=== PATIENT | male | born 1945 | race Caucasian/White ===

== ENCOUNTER 2017-07-28 05:50 | Day surgery (SDC) | payer OTHER ==
[2017-07-27 14:04] VITALS: BMI 26.9
[2017-07-28] MEDS ORDERED: PROPOFOL 20 ML ONE ×2 (09:32)
[2017-07-28 10:35] VITALS: TEMP 97.7
[2017-07-28 12:06] VITALS: BP 131/50; PULSE 59
--- NOTE | 2017-07-31 15:37 | PATH ---
Surgical Pathology Report Patient Name: SANDEEP MCCOY [facility]. Rec. #: [id number] /Age/Gender: 1945 (Age: 71) / M Account: [id number] Location: [facility]ENDOSCOPY Taken: 07/28/2017 Received: 07/28/2017 Reported: 07/31/2017 Physicians: Livier Clark M.D. Specimen(s) Received A: BX 2ND PORTION DUODENUM & BULB B: BX ANTRUM C: BX POLYPS SIGMOID COLON Clinical History Preoperative diagnosis: Dyspepsia, weight loss Postoperative diagnosis: Atrophic gastritis, sigmoid polyps Final Diagnosis A. DUODENUM, SECOND PORTION AND BULB, BIOPSY: DUODENAL MUCOSA WITHOUT SIGNIFICANT PATHOLOGIC FINDINGS. B. STOMACH, ANTRUM, BIOPSY: GASTRIC ANTRAL MUCOSA WITH SEVERE CHRONIC ACTIVE GASTRITIS. IMMUNOHISTOCHEMICAL STAIN FOR H. PYLORI IS POSITIVE (MANY). C. SIGMOID COLON, POLYPS, BIOPSY: TUBULAR ADENOMA. HYPERPLASTIC POLYP. SEPARATE FRAGMENTS OF BENIGN COLONIC MUCOSA WITHOUT SIGNIFICANT PATHOLOGIC FINDINGS. Electronically Signed Alexandria Vázquez M.D. Gross Description A. Received in formalin, labeled "biopsy second portion of duodenum and bulb" are 3 erickson, irregular portions of soft tissue ranging from 0.4-0.5 cm. in greatest dimension. The specimens are submitted in toto in one cassette. B. Received in formalin, labeled "biopsy antrum" are 4 erickson, irregular portions of soft tissue ranging from 0.2-0.3 cm. in greatest dimension. The specimens are submitted in toto in one cassette. C. Received in formalin, labeled "biopsy polyps sigmoid colon" are 7 erickson, irregular portions of soft tissue ranging from 0.1-0.4 cm. in greatest dimension. The specimens are submitted in toto in one cassette. 07/28/201707/28/2017
== END 2017-07-28 11:45 | disposition home or self-care (01) ==
LOC: JASU-ENDO 05:50
PROVIDERS: ATTEND Internal Medicine Gastroenterology
PROC: 0DB78ZX Excision of Stomach, Pylorus, Via Natural or Artificial Opening Endoscopic, Diagnostic (ICD-10-PCS; 2017-07-28)
PROC: 0DBN8ZX Excision of Sigmoid Colon, Via Natural or Artificial Opening Endoscopic, Diagnostic (ICD-10-PCS; 2017-07-28)
PROC: 0DB98ZX Excision of Duodenum, Via Natural or Artificial Opening Endoscopic, Diagnostic (ICD-10-PCS; principal; 2017-07-28 10:00)
DX: K29.40 Chronic atrophic gastritis without bleeding (principal); K63.5 Polyp of colon; N40.0 Benign prostatic hyperplasia without lower urinary tract symptoms
CPT/HCPCS: 88305-TC; 88342-TC

== ENCOUNTER 2018-12-21 11:44 | Day surgery (SDC) | payer OTHER ==
[2018-12-20 10:19] VITALS: BMI 22.7
[2018-12-21] MEDS ORDERED: PROPOFOL 20 ML ONE (14:55)
[2018-12-21] MEDS ORDERED: ceFAZolin SODIUM 1 GM VIAL ONE (15:11)
[2018-12-21] MEDS ORDERED: ceFAZolin SODIUM 1 GM VIAL IVPB ONE (15:12)
[2018-12-21] MEDS ORDERED: DEXAMETHASONE SOD PHOSPHATE 4 MG/1 ML VIAL ONE (15:13)
--- NOTE | 2018-12-21 15:37 | OP ---
Operative Note - Note: Operative Date: 12/21/18 Pre-Operative Diagnosis: bph with luts Operation: turp/tuvp Findings: trilobar hypertrophy with bladder trabeculation Post-Operative Diagnosis: Same as Pre-op Surgeon: Ana Chance Anesthesia: General Specimens Removed: prostate chips Estimated Blood Loss (mls): 10 Drains, Volume Out (mls): 0 Blood Volume Replaced (mls): 0 Fluid Volume Replaced (mls): 0 Operative Report Dictated: Yes
--- NOTE | 2018-12-21 15:40 | HP ---
DATE OF ADMISSION: 12/21/2018 HISTORY OF PRESENT ILLNESS: Patient is a 73-year-old male with history of benign prostatic hypertrophy with lower urinary tract symptoms. He has been treated with Flomax without help. He does complaint of frequency, hesitancy, nocturia x4, and feelings of incomplete bladder emptying. The patient also has history of diabetes, high blood pressure, coronary artery disease, and dyslipidemia. 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 MEDICATIONS: Presently, the patient is on Flomax, Vesicare, metoprolol, metformin, a statin, and a glyburide. PHYSICAL EXAMINATION: Chest: Clear. Abdomen: Soft. No CVA tenderness. No hepatosplenomegaly. Genitalia: Atraumatic. Testes are normal in size and consistency. Phallus is normal. Meatus is adequate. Prostate is 3+, smooth, benign, nontender. Rectal tone is good. Saddle sensation is present. Bulbocavernosus reflex is brisk. Extremities: Reveal full range of motion with no cyanosis, clubbing, or edema. LABORATORY DATA: His serum PSA is 0.3. BUN 16, creatinine 1.03. IMPRESSION: At present is benign prostatic hypertrophy with lower urinary tract symptoms. Failed medical management. PLAN: Is to undergo a prostate resection. Patient was explained the procedure and all side effects including retrograde ejaculation, and he agrees. DENISE LUIS M.D. [id number]
[2018-12-21] MEDS ORDERED: ACETAMINOPHEN 325 MG TABLET (FP) PO PRN (15:48)
[2018-12-21] MEDS ORDERED: ONDANSETRON 4 MG/2 ML VIAL IVPUSH PRN (15:48)
[2018-12-21] MEDS ORDERED: LACTATED RINGERS SOLUTION 1,000 ML IV SCH (16:00)
[2018-12-21 17:06] VITALS: BP 151/72
[2018-12-21 18:17] VITALS: PULSE 60; TEMP 97.9
--- NOTE | 2018-12-22 08:13 | OP ---
DATE OF OPERATION: 12/21/2018 PREOPERATIVE DIAGNOSIS: Benign prostatic hypertrophy with lower urinary tract symptoms. POSTOPERATIVE DIAGNOSIS: Trabeculated bladder. OPERATIVE PROCEDURE: Cystourethroscopy, transurethral resection, and transurethral vaporization of the prostate. Under general anesthesia, patient was prepped and draped in the usual sterile manner. He was placed in the dorsal lithotomy position. Cystoscopy revealed trilobar hypertrophy of the prostate. There was lateral lobe kissing. There was a grade 2 trabeculation of the bladder. A resectoscope was inserted. Resection of the prostate was commenced at the 6 o'clock position of the right lateral lobe. This was carried on up to the 12 o'clock position. The same thing was done to the left lateral lobe. Lastly, the median lobe was resected. A Vaportrode was introduced, and excess tissue was vaporized. Prostate chips were evacuated with an MirDeneg evacuator. No active bleeding was noted. The bladder was emptied. The scope was removed. A 24-[place]izen [place], 30-mL Chahal was inserted. This was connected to a drainage bag. The patient tolerated the procedure well. Dev [id number]
--- NOTE | 2018-12-22 09:47 | OP ---
DATE OF OPERATION: 12/21/2018 SURGEON: Ana Chance MD PREOPERATIVE DIAGNOSIS: Obstructive uropathy, benign prostatic hypertrophy, trilobar hypertrophy of the prostate. POSTOPERATIVE DIAGNOSIS: Obstructive uropathy, benign prostatic hypertrophy, trilobar hypertrophy of the prostate. OPERATIVE PROCEDURE: Cystourethroscopy, transurethral vaporization of the prostate, and transurethral vaporization of the prostate. DESCRIPTION OF PROCEDURE: Under general anesthesia, patient was prepped and draped in the usual sterile manner. He was placed in the dorsal lithotomy position. Cystoscopy revealed trilobar hypertrophy of the prostate. There was lateral lobe kissing. There was grade 2 trabeculation of the bladder. No lesions or calculi were seen. Ureteral orifices were within normal limits with efflux of clear urine. A bipolar resectoscope was inserted and resection of the prostate was commenced in the usual fashion. Afterwards, a Vaportrode was introduced, and excess tissue was vaporized and hemostasis was secured. Prostate chips were evacuated with an Ellik evacuator. No active bleeding was noted. The bladder was emptied. The scope was removed. The 24-[place] 30-mL Chahal was inserted. This was connected to bladder irrigation. The patient tolerated the procedure. He returned to the recovery room in good condition. Dev [id number]
--- NOTE | 2018-12-25 15:41 | PATH ---
Surgical Pathology Report Patient Name: SANDEEP MCCOY [facility]. Rec. #: [id number] /Age/Gender: 1945 (Age: 73) / M Account: [id number] Location: [facility] SURGICAL Taken: 12/21/2018 Received: 12/24/2018 Reported: 12/25/2018 Physicians: Ana Chance M.D. Specimen(s) Received PROSTATE CHIPS Clinical History BPH Final Diagnosis PROSTATE CHIPS, TRANSURETHRAL RESECTION OF PROSTATE: BENIGN PROSTATIC TISSUE WITH FOCAL ACUTE AND CHRONIC INFLAMMATION, ACINAR ATROPHY, CYSTIC CHANGES, MILD GLANDULAR AND STROMAL HYPERPLASIA. Electronically Signed Alexandria Vázquez M.D. Gross Description Received in formalin labeled "prostate chips," is a 5.0 x 4.4 x 0.4 cm aggregate of erickson, irregular portions of firm to rubbery tissue, consistent with prostate chips. The specimen is entirely submitted in 3 cassettes. /12/24/2018 saudi12/24/2018
== END 2018-12-21 18:10 | disposition home or self-care (01) ==
LOC: JASU-SURG 11:44
PROVIDERS: ATTEND Urology
PROC: 0VT08ZZ Resection of Prostate, Via Natural or Artificial Opening Endoscopic (ICD-10-PCS; principal; 2018-12-21 13:00)
DX: N40.1 Benign prostatic hyperplasia with lower urinary tract symptoms (principal); N13.9 Obstructive and reflux uropathy, unspecified; N32.89 Other specified disorders of bladder; I10 Essential (primary) hypertension; E11.9 Type 2 diabetes mellitus without complications; Z79.84 Long term (current) use of oral hypoglycemic drugs
CPT/HCPCS: 82962; 87086; 88305-TC; 94760

== ENCOUNTER 2021-06-28 04:28 | Day surgery (SDC) | payer OTHER ==
[2021-06-25 11:57] VITALS: BMI 27.3
[2021-06-28 09:57] LABS: INR 1.17 (0.83-1.09); PROTHROMBIN TIME (PATIENT) 13.1 SEC (9.7-13.0)
[2021-06-28] MEDS ORDERED: PROPOFOL 20 ML ONE ×2 (11:37)
[2021-06-28] MEDS ORDERED: ceFAZolin SODIUM 1 GM VIAL IVPB ONE (11:50)
[2021-06-28] MEDS ORDERED: HYDROmorphone HCL CARPU-JECT 2 MG/1 ML DISP.SYRIN IM ONE (12:49)
[2021-06-28] MEDS ORDERED: TAMSULOSIN HCL 0.4 MG CAP PO ONE ×2 (12:49→15:08)
[2021-06-28] MEDS ORDERED: ACETAMINOPHEN 325 MG TABLET (FP) PO PRN ×2 (12:49)
[2021-06-28] MEDS ORDERED: METOPROLOL TARTRATE 50 MG TABLET (FP) PO ONE (12:57)
[2021-06-28] MEDS ORDERED: LACTATED RINGERS SOLUTION 1,000 ML/1,000 ML INFUS.BAG IV SCH (13:30)
[2021-06-28] MEDS ORDERED: oxyCODONE HCL 5 MG TABLET PO PRN (13:55)
[2021-06-28] MEDS: metFORMIN HCL 500 MG TABLET (FP) PO SCH (17:45)
[2021-06-28] MEDS ORDERED: DOCUSATE SODIUM 100 MG CAPSULE (FP) PO SCH (22:00)
[2021-06-29 05:05] VITALS: BP 118/64; PULSE 74; TEMP 98.3
[2021-06-29] MEDS ORDERED: PT OWN MED DRAWER 7, Y5N ONE ×3 (05:45→06:28)
[2021-06-29] MEDS: metFORMIN HCL 500 MG TABLET (FP) PO SCH (06:31)
[2021-06-29] MEDS ORDERED: GLIMEPIRIDE 4 MG TABLET PO SCH (07:00)
== END 2021-06-29 15:23 | disposition home or self-care (01) ==
LOC: JASUSAT 04:28 → JASU-SURG 04:28 → J6S 16:34 → JASUSAT 06-29 15:23
PROVIDERS: ATTEND Urology
PROC: 0VT08ZZ Resection of Prostate, Via Natural or Artificial Opening Endoscopic (ICD-10-PCS; principal; 2021-06-28 11:00)
DX: N40.1 Benign prostatic hyperplasia with lower urinary tract symptoms (principal); N32.89 Other specified disorders of bladder; E11.9 Type 2 diabetes mellitus without complications; I10 Essential (primary) hypertension; Z79.84 Long term (current) use of oral hypoglycemic drugs
CPT/HCPCS: 36415; 85610; 87086; 88305-TC; 94010; 94760

== ENCOUNTER 2021-08-17 13:30 | Inpatient (IN) | payer OTHER ==
[2021-08-17 14:01] VITALS: BMI 22.8
[2021-08-17 17:39] LABS: BASO % 0.9 % (0-2.0); EOS % 3.5 % (0-4.5); HEMATOCRIT 39.4 % (35.4-49); HEMOGLOBIN 13.1 GM/dL (11.7-16.9); LYMPH % 21.4 % (8-40); MCH 30.7 pg (25.7-33.7); MCHC 33.3 g/dl (32.0-35.9); MEAN CELL VOLUME 92.1 fl (80-96); MEAN PLT VOLUME 7.1 fl (7.5-11.1); MONO % 10.1 % (3.8-10.2); NEUT % 64.1 % (42.8-82.8); PLATELET COUNT 214 10^3/uL (134-434); RBC 4.27 M/mm3 (4.00-5.60); RDW 13.8 % (11.9-15.9); WHITE BLOOD COUNT 6.4 K/mm3 (4.0-10.0)
[2021-08-17 17:58] LABS: CHLORIDE 101 mmol/L (98-107); SODIUM 136 mmol/L (136-145)
[2021-08-17 18:00] LABS: CALCIUM 8.9 mg/dL (8.5-10.1)
[2021-08-17 18:01] LABS: ALBUMIN 3.8 g/dl (3.4-5.0); ANION GAP 6 MMOL/L (8-16); BLOOD UREA NITROGEN 28.1 mg/dL (7-18); CO2 28 mmol/L (21-32); GLUCOSE,RANDOM 186 mg/dL (74-106); MAGNESIUM 2.2 mg/dL (1.8-2.4)
[2021-08-17 18:04] LABS: CHOLESTEROL 213 mg/dL (50-200); CREATININE 1.4 mg/dL (0.55-1.3); PHOSPHOROUS 2.7 mg/dL (2.5-4.9); SGOT/AST 18 U/L (15-37); SGPT/ALT 24 U/L (13-61); TRIGLYCERIDES 200 mg/dL (0-150)
[2021-08-17 18:05] LABS: BILIRUBIN,TOTAL 0.4 mg/dL (0.2-1); LDL CHOLESTEROL (ONLY SJRH) 127 mg/dL (5-100); TOT PROT 7.5 g/dl (6.4-8.2)
[2021-08-17 18:06] LABS: ALK PHOS 72 U/L (45-117); HDL CHOLESTEROL 43 mg/dL (40-60)
[2021-08-17] MEDS ORDERED: SODIUM CHLORIDE 0.9% 500 ML INFUS.BAG IV ONE (18:32)
[2021-08-17] MEDS ORDERED: ATORVASTATIN CA 80 MG TABLET (FP) PO ONE (21:23)
[2021-08-17] MEDS ORDERED: ASPIRIN 81 MG CHEWABLE TABLETS PO ONE (21:23)
[2021-08-17] MEDS ORDERED: ATORVASTATIN CA 80 MG TABLET (FP) ONE (21:37)
[2021-08-17] MEDS ORDERED: ASPIRIN 81 MG CHEWABLE TABLETS ONE (21:37)
[2021-08-17 23:37] LABS: INR 1.06 (0.83-1.09); PROTHROMBIN TIME (PATIENT) 12.4 SEC (9.7-13.0)
[2021-08-17 23:40] LABS: ACTIVATED PTT 30.4 SECONDS (25.2-36.5)
[2021-08-18] MEDS ORDERED: ASPIRIN 81 MG CHEWABLE TABLETS PO ONE (01:22)
[2021-08-18] MEDS ORDERED: MELATONIN 5 MG TABLETS PO ONE (02:31)
[2021-08-18] MEDS ORDERED: LORazepam 2 MG/ML SDV VIAL IVPUSH ONE (03:40)
[2021-08-18] MEDS ORDERED: LORazepam 2 MG/ML SDV VIAL ONE (03:41)
[2021-08-18 05:51] LABS: EPI CELLS 33 /uL (0-25.1); HYALINE CASTS 1 /uL (0-3.1); URINE APPEARANCE TURBID; URINE BACTERIA 1360 /uL (0-1359); URINE BILIRUBIN NEGATIVE (NEGATIVE); URINE COLOR YELLOW; URINE GLUCOSE (UA) 3+ (NEGATIVE); URINE KETONE TRACE (NEGATIVE); URINE LEUK ESTERASE 3+ (NEGATIVE); URINE NITRITE NEGATIVE (NEGATIVE); URINE PROTEIN 1+ (NEGATIVE); URINE RBC 238 /uL (0-23.9); URINE UROBILINOGEN 0.2 mg/dL (0.2-1.0); URINE WBC 12722 /uL (0-25.8)
[2021-08-18 06:48] LABS: YEAST NONE SEEN (NEGATIVE)
[2021-08-18 08:12] LABS: BASO % 0.7 % (0-2.0); EOS % 4.4 % (0-4.5); HEMATOCRIT 38.5 % (35.4-49); HEMOGLOBIN 13.2 GM/dL (11.7-16.9); MCH 31.4 pg (25.7-33.7); MCHC 34.4 g/dl (32.0-35.9); MEAN CELL VOLUME 91.3 fl (80-96); MONO % 10.4 % (3.8-10.2); NEUT % 65.5 % (42.8-82.8); PLATELET COUNT 191 10^3/uL (134-434); RBC 4.22 M/mm3 (4.00-5.60); RDW 13.6 % (11.9-15.9); WHITE BLOOD COUNT 5.7 K/mm3 (4.0-10.0)
[2021-08-18 08:14] LABS: INR 1.06 (0.83-1.09); PROTHROMBIN TIME (PATIENT) 11.9 SEC (9.7-13.0)
[2021-08-18 08:17] LABS: ACTIVATED PTT 30.3 SECONDS (25.2-36.5)
[2021-08-18 08:30] LABS: ALBUMIN 3.4 g/dl (3.4-5.0); BLOOD UREA NITROGEN 19.2 mg/dL (7-18); CALCIUM 8.7 mg/dL (8.5-10.1); MAGNESIUM 1.9 mg/dL (1.8-2.4)
[2021-08-18 08:33] LABS: PHOSPHOROUS 3.1 mg/dL (2.5-4.9)
[2021-08-18 08:34] LABS: BILIRUBIN,TOTAL 0.7 mg/dL (0.2-1); TOT PROT 6.8 g/dl (6.4-8.2)
[2021-08-18] MEDS ORDERED: HEPARIN NA (PORCINE) 5,000 UNITS/ML 1ML VIAL IVPUSH PRN (09:27)
[2021-08-18] MEDS ORDERED: ENOXAPARIN NA (PORCINE) 40 MG/0.4 ML DISP.SYRIN SQ SCH (10:00)
[2021-08-18] MEDS ORDERED: ASPIRIN 81 MG CHEWABLE TABLETS ONE (12:56)
[2021-08-18] MEDS: ASPIRIN 81 MG CHEWABLE TABLETS PO SCH (12:59)
[2021-08-18] MEDS ORDERED: HEPARIN INFUSION - 25,000 UNITS/500 ML INFUS.BAG IVPB ONE (13:07)
[2021-08-18] MEDS ORDERED: DONEPEZIL HCL 5 MG TABLET (FP) ONE (13:07)
[2021-08-18] MEDS: DONEPEZIL HCL 10 MG TABLET (FP) PO SCH (13:28)
[2021-08-18] MEDS ORDERED: CEFTRIAXONE 1 GM in DEXTROSE 5%-WATER - 50 ML IVPB ONE (16:15)
[2021-08-18] MEDS ORDERED: CEFTRIAXONE 1 GM/50 ML BAG ONE (16:20)
[2021-08-18] MEDS: HEPARIN - 25,000 UNIT in SODIUM CHLORIDE 495 ML IV SCH (16:45)
[2021-08-18] MEDS: INSULIN SLIDING SCALE (NOVOLOG) 1 VIAL SQ SCH ×3 (17:25→22:07)
[2021-08-18] MEDS: ATORVASTATIN CA 80 MG TABLET (FP) PO SCH (22:07)
[2021-08-19] MEDS: INSULIN SLIDING SCALE (NOVOLOG) 1 VIAL SQ SCH ×4 (06:18→21:46)
[2021-08-19 08:28] LABS: HEMOGLOBIN 13.1 GM/dL (11.7-16.9); MCH 31.2 pg (25.7-33.7); MCHC 34.5 g/dl (32.0-35.9); MEAN CELL VOLUME 90.3 fl (80-96); MEAN PLT VOLUME 7.3 fl (7.5-11.1); PLATELET COUNT 228 10^3/uL (134-434); RDW 13.3 % (11.9-15.9); WHITE BLOOD COUNT 6.7 K/mm3 (4.0-10.0)
[2021-08-19 08:33] LABS: INR 1.08 (0.83-1.09); PROTHROMBIN TIME (PATIENT) 12.6 SEC (9.7-13.0)
[2021-08-19 08:36] LABS: ACTIVATED PTT 104.9 SECONDS (25.2-36.5)
[2021-08-19] MEDS: ASPIRIN 81 MG CHEWABLE TABLETS PO SCH (09:44)
[2021-08-19] MEDS: DONEPEZIL HCL 10 MG TABLET (FP) PO SCH (09:45)
[2021-08-19] MEDS: TAMSULOSIN HCL 0.4 MG CAP PO SCH (09:45)
[2021-08-19] MEDS: HEPARIN - 25,000 UNIT in SODIUM CHLORIDE 495 ML IV SCH ×2 (09:47→16:54)
[2021-08-19 14:34] LABS: BLOOD UREA NITROGEN 19.5 mg/dL (7-18); CALCIUM 8.9 mg/dL (8.5-10.1)
[2021-08-19] MEDS: HEPARIN NA (PORCINE) 5,000 UNITS/ML 1ML VIAL IVPUSH PRN (16:53)
[2021-08-19] MEDS: metoPROLOL SUCCINATE 25 MG TAB.SR.24H (FP) PO SCH (18:10)
[2021-08-19] MEDS: WARFARIN NA 2 MG TABLET PO SCH (18:10)
[2021-08-19] MEDS: AMPICILLIN - 1 GM in SODIUM CHLORIDE 100 ML IVPB SCH (18:11)
[2021-08-19] MEDS: ATORVASTATIN CA 80 MG TABLET (FP) PO SCH (21:42)
[2021-08-20] MEDS: AMPICILLIN - 1 GM in SODIUM CHLORIDE 100 ML IVPB SCH ×4 (00:11→17:27)
[2021-08-20] MEDS: INSULIN SLIDING SCALE (NOVOLOG) 1 VIAL SQ SCH ×4 (07:01→21:29)
[2021-08-20 07:44] LABS: HEMATOCRIT 39.4 % (35.4-49); HEMOGLOBIN 13.4 GM/dL (11.7-16.9); MCH 31.2 pg (25.7-33.7); MCHC 34.2 g/dl (32.0-35.9); MEAN CELL VOLUME 91.4 fl (80-96); MEAN PLT VOLUME 7.6 fl (7.5-11.1); PLATELET COUNT 226 10^3/uL (134-434); RBC 4.31 M/mm3 (4.00-5.60); RDW 13.5 % (11.9-15.9); WHITE BLOOD COUNT 6.4 K/mm3 (4.0-10.0)
[2021-08-20 07:55] LABS: INR 1.07 (0.83-1.09); PROTHROMBIN TIME (PATIENT) 12.5 SEC (9.7-13.0)
[2021-08-20 07:57] LABS: ACTIVATED PTT 66.3 SECONDS (25.2-36.5)
[2021-08-20 08:01] LABS: ALBUMIN 3.3 g/dl (3.4-5.0); BLOOD UREA NITROGEN 22.6 mg/dL (7-18); CALCIUM 8.7 mg/dL (8.5-10.1)
[2021-08-20 08:03] LABS: CREATININE 1.2 mg/dL (0.55-1.3)
[2021-08-20 08:04] LABS: BILIRUBIN,TOTAL 0.6 mg/dL (0.2-1)
[2021-08-20] MEDS: metoPROLOL SUCCINATE 25 MG TAB.SR.24H (FP) PO SCH (09:22)
[2021-08-20] MEDS: TAMSULOSIN HCL 0.4 MG CAP PO SCH (09:22)
[2021-08-20] MEDS: ASPIRIN 81 MG CHEWABLE TABLETS PO SCH (09:22)
[2021-08-20] MEDS: DONEPEZIL HCL 10 MG TABLET (FP) PO SCH (09:22)
[2021-08-20] MEDS: HEPARIN - 25,000 UNIT in SODIUM CHLORIDE 495 ML IV SCH (11:58)
[2021-08-20] MEDS: WARFARIN NA 2 MG TABLET PO SCH (17:27)
[2021-08-20] MEDS ORDERED: PT OWN MED DRAWER 7, Y5N ONE (18:01)
[2021-08-20] MEDS: ATORVASTATIN CA 80 MG TABLET (FP) PO SCH (21:29)
[2021-08-21] MEDS ORDERED: PT OWN MED DRAWER 7, Y5N ONE (00:27)
[2021-08-21] MEDS: AMPICILLIN - 1 GM in SODIUM CHLORIDE 100 ML IVPB SCH ×3 (00:39→13:43)
[2021-08-21] MEDS ORDERED: LORazepam 2 MG/ML SDV VIAL IVPUSH ONE (03:28)
[2021-08-21] MEDS ORDERED: LORazepam 2 MG/ML SDV VIAL IVPUSH PRN (03:30)
[2021-08-21] MEDS: INSULIN SLIDING SCALE (NOVOLOG) 1 VIAL SQ SCH ×4 (06:43→21:59)
[2021-08-21 08:30] LABS: HEMOGLOBIN 13.1 GM/dL (11.7-16.9); MCH 30.1 pg (25.7-33.7); MCHC 32.7 g/dl (32.0-35.9); PLATELET COUNT 270 10^3/uL (134-434); RBC 4.35 M/mm3 (4.00-5.60); RDW 13.7 % (11.9-15.9); WHITE BLOOD COUNT 10.4 K/mm3 (4.0-10.0)
[2021-08-21 08:47] LABS: INR 1.17 (0.83-1.09); PROTHROMBIN TIME (PATIENT) 13.7 SEC (9.7-13.0)
[2021-08-21 08:56] LABS: ALBUMIN 3.5 g/dl (3.4-5.0); BLOOD UREA NITROGEN 18.9 mg/dL (7-18)
[2021-08-21 08:59] LABS: CREATININE 1.2 mg/dL (0.55-1.3)
[2021-08-21 09:01] LABS: BILIRUBIN,TOTAL 0.6 mg/dL (0.2-1); TOT PROT 7.1 g/dl (6.4-8.2)
[2021-08-21] MEDS: TAMSULOSIN HCL 0.4 MG CAP PO SCH (09:24)
[2021-08-21] MEDS: DONEPEZIL HCL 10 MG TABLET (FP) PO SCH (09:24)
[2021-08-21] MEDS: ASPIRIN 81 MG CHEWABLE TABLETS PO SCH (09:24)
[2021-08-21] MEDS: metoPROLOL SUCCINATE 25 MG TAB.SR.24H (FP) PO SCH (09:25)
[2021-08-21] MEDS: INSULIN (LEVEMIR) 100 UNITS/ML UNITS SQ SCH ×2 (09:25→21:59)
[2021-08-21] MEDS: HEPARIN NA (PORCINE) 5,000 UNITS/ML 1ML VIAL IVPUSH PRN ×2 (09:51→17:44)
[2021-08-21] MEDS: HEPARIN - 25,000 UNIT in SODIUM CHLORIDE 495 ML IV SCH ×2 (11:16→17:43)
[2021-08-21] MEDS: Insulin (LOG) Aspart 100 UNITS/ML VIAL SQ SCH ×2 (11:22→16:57)
[2021-08-21] MEDS ORDERED: metoPROLOL SUCCINATE 25 MG TAB.SR.24H (FP) PO ONE (14:37)
[2021-08-21] MEDS ORDERED: cefTRIAXone SODIUM 1 GM VIAL ONE (16:46)
[2021-08-21] MEDS ORDERED: DEXTROSE 5%-WATER - 50 ML IVPB ONE (16:46)
[2021-08-21] MEDS: CEFTRIAXONE 1 GM in DEXTROSE 5%-WATER - 50 ML IVPB SCH (16:48)
[2021-08-21] MEDS: VANCOMYCIN 1 GRAM (PRE-DOCKED) 1,000 MG/250 ML BAG IVPB SCH (18:15)
[2021-08-21] MEDS: WARFARIN NA 2 MG TABLET PO SCH (18:15)
[2021-08-21] MEDS: ATORVASTATIN CA 80 MG TABLET (FP) PO SCH (21:59)
[2021-08-21] MEDS: QUEtiapine FUMARATE 25 MG TABLET PO SCH (22:00)
[2021-08-22] MEDS: INSULIN SLIDING SCALE (NOVOLOG) 1 VIAL SQ SCH ×4 (06:07→21:44)
[2021-08-22] MEDS: INSULIN (LEVEMIR) 100 UNITS/ML UNITS SQ SCH ×2 (06:21→21:43)
[2021-08-22] MEDS: Insulin (LOG) Aspart 100 UNITS/ML VIAL SQ SCH ×3 (06:22→17:22)
[2021-08-22 08:10] LABS: ACTIVATED PTT 99.1 SECONDS (25.2-36.5)
[2021-08-22 08:11] LABS: HEMATOCRIT 37.1 % (35.4-49); HEMOGLOBIN 12.2 GM/dL (11.7-16.9); MCH 30.2 pg (25.7-33.7); MCHC 32.9 g/dl (32.0-35.9); MEAN CELL VOLUME 91.8 fl (80-96); MEAN PLT VOLUME 7.5 fl (7.5-11.1); PLATELET COUNT 288 10^3/uL (134-434); RBC 4.04 M/mm3 (4.00-5.60); RDW 13.8 % (11.9-15.9)
[2021-08-22 08:25] LABS: INR 1.41 (0.83-1.09); PROTHROMBIN TIME (PATIENT) 15.9 SEC (9.7-13.0)
[2021-08-22] MEDS: HEPARIN - 25,000 UNIT in SODIUM CHLORIDE 495 ML IV SCH ×2 (09:13→18:36)
[2021-08-22] MEDS ORDERED: cefTRIAXone SODIUM 1 GM VIAL ONE (10:16)
[2021-08-22] MEDS ORDERED: DEXTROSE 5%-WATER - 50 ML IVPB ONE (10:17)
[2021-08-22] MEDS: ACETAMINOPHEN 325 MG TABLET (FP) PO PRN (10:27)
[2021-08-22] MEDS: ASPIRIN 81 MG CHEWABLE TABLETS PO SCH (10:28)
[2021-08-22] MEDS: TAMSULOSIN HCL 0.4 MG CAP PO SCH (10:28)
[2021-08-22] MEDS: DONEPEZIL HCL 10 MG TABLET (FP) PO SCH (10:28)
[2021-08-22] MEDS: LISINOPRIL 5 MG TABLET PO SCH (10:28)
[2021-08-22] MEDS: metoPROLOL SUCCINATE 25 MG TAB.SR.24H (FP) PO SCH (10:28)
[2021-08-22] MEDS: CEFTRIAXONE 1 GM in DEXTROSE 5%-WATER - 50 ML IVPB SCH (10:28)
[2021-08-22 11:08] LABS: BLOOD UREA NITROGEN 12.9 mg/dL (7-18); CALCIUM 8.9 mg/dL (8.5-10.1)
[2021-08-22 11:16] LABS: BILIRUBIN,TOTAL 0.5 mg/dL (0.2-1); TOT PROT 6.5 g/dl (6.4-8.2)
[2021-08-22] MEDS: VANCOMYCIN 1 GRAM (PRE-DOCKED) 1,000 MG/250 ML BAG IVPB SCH (17:19)
[2021-08-22] MEDS: WARFARIN NA 2 MG TABLET PO SCH (17:19)
[2021-08-22] MEDS: ATORVASTATIN CA 80 MG TABLET (FP) PO SCH (21:43)
[2021-08-22] MEDS: QUEtiapine FUMARATE 25 MG TABLET PO SCH (21:43)
[2021-08-23] MEDS: Insulin (LOG) Aspart 100 UNITS/ML VIAL SQ SCH ×2 (06:37→11:57)
[2021-08-23] MEDS: INSULIN (LEVEMIR) 100 UNITS/ML UNITS SQ SCH ×2 (06:37→21:34)
[2021-08-23] MEDS: INSULIN SLIDING SCALE (NOVOLOG) 1 VIAL SQ SCH ×4 (06:37→21:32)
[2021-08-23] MEDS: ACETAMINOPHEN 325 MG TABLET (FP) PO PRN ×2 (06:43→09:57)
[2021-08-23] MEDS ORDERED: cefTRIAXone SODIUM 1 GM VIAL ONE (08:11)
[2021-08-23] MEDS ORDERED: DEXTROSE 5%-WATER - 50 ML IVPB ONE ×2 (08:12→18:10)
[2021-08-23] MEDS ORDERED: PT OWN MED DRAWER 7, Y5N ONE (08:18)
[2021-08-23 08:24] LABS: HEMATOCRIT 38.1 % (35.4-49); HEMOGLOBIN 12.8 GM/dL (11.7-16.9); MCH 30.5 pg (25.7-33.7); MCHC 33.5 g/dl (32.0-35.9); MEAN PLT VOLUME 7.7 fl (7.5-11.1); PLATELET COUNT 300 10^3/uL (134-434); RBC 4.19 M/mm3 (4.00-5.60); RDW 13.9 % (11.9-15.9)
[2021-08-23 08:45] LABS: INR 1.66 (0.83-1.09); PROTHROMBIN TIME (PATIENT) 19.5 SEC (9.7-13.0)
[2021-08-23 09:19] LABS: BLOOD UREA NITROGEN 16.9 mg/dL (7-18); CALCIUM 8.6 mg/dL (8.5-10.1)
[2021-08-23 09:22] LABS: CREATININE 1.2 mg/dL (0.55-1.3)
[2021-08-23 09:23] LABS: TOT PROT 6.5 g/dl (6.4-8.2)
[2021-08-23 09:24] LABS: BILIRUBIN,TOTAL 0.4 mg/dL (0.2-1)
[2021-08-23] MEDS: CEFTRIAXONE 1 GM in DEXTROSE 5%-WATER - 50 ML IVPB SCH (09:53)
[2021-08-23] MEDS: LISINOPRIL 5 MG TABLET PO SCH (09:54)
[2021-08-23] MEDS: metoPROLOL SUCCINATE 25 MG TAB.SR.24H (FP) PO SCH (09:54)
[2021-08-23] MEDS: ASPIRIN 81 MG CHEWABLE TABLETS PO SCH (09:54)
[2021-08-23] MEDS: DONEPEZIL HCL 10 MG TABLET (FP) PO SCH (09:54)
[2021-08-23] MEDS: TAMSULOSIN HCL 0.4 MG CAP PO SCH (09:54)
[2021-08-23] MEDS: HEPARIN NA (PORCINE) 5,000 UNITS/ML 1ML VIAL IVPUSH PRN (09:58)
[2021-08-23] MEDS: HEPARIN - 25,000 UNIT in SODIUM CHLORIDE 495 ML IV SCH (10:07)
[2021-08-23] MEDS ORDERED: INSULIN (LEVEMIR) 100 UNITS/ML UNITS SQ SCH (15:05)
[2021-08-23] MEDS ORDERED: PIPERACILLIN/TAZOBACTAM 3.375 GM VIAL IVPB ONE (18:10)
[2021-08-23] MEDS: PIPERACILLIN/TAZOB 3.375 GM 3.375 GM in DEXTROSE 5%-WATER - 50 ML IVPB SCH (18:11)
[2021-08-23] MEDS: WARFARIN NA 2 MG TABLET PO SCH (18:13)
[2021-08-23] MEDS: INSULIN (NOVOLOG) ASPART 100 UNITS/ML 10ML VIAL SQ SCH (18:17)
[2021-08-23] MEDS: QUEtiapine FUMARATE 25 MG TABLET PO SCH (21:36)
[2021-08-23] MEDS ORDERED: ATORVASTATIN CA 40 MG TABLET (FP) PO SCH (22:00)
[2021-08-24] MEDS ORDERED: DEXTROSE 5%-WATER - 50 ML IVPB ONE ×3 (00:53→17:17)
[2021-08-24] MEDS ORDERED: PIPERACILLIN/TAZOBACTAM 3.375 GM VIAL IVPB ONE ×3 (00:53→17:17)
[2021-08-24] MEDS: PIPERACILLIN/TAZOB 3.375 GM 3.375 GM in DEXTROSE 5%-WATER - 50 ML IVPB SCH ×3 (01:07→17:18)
[2021-08-24] MEDS: HEPARIN - 25,000 UNIT in SODIUM CHLORIDE 495 ML IV SCH (01:08)
[2021-08-24 02:03] LABS: INR 2.04 (0.83-1.09)
[2021-08-24 02:06] LABS: ACTIVATED PTT 83.6 SECONDS (25.2-36.5)
[2021-08-24] MEDS: INSULIN (LEVEMIR) 100 UNITS/ML UNITS SQ SCH (06:17)
[2021-08-24] MEDS: INSULIN SLIDING SCALE (NOVOLOG) 1 VIAL SQ SCH ×3 (06:18→17:16)
[2021-08-24] MEDS: INSULIN (NOVOLOG) ASPART 100 UNITS/ML 10ML VIAL SQ SCH ×3 (06:18→17:25)
[2021-08-24 07:49] LABS: INR 2.24 (0.83-1.09); PROTHROMBIN TIME (PATIENT) 26.4 SEC (9.7-13.0)
[2021-08-24 07:51] LABS: ACTIVATED PTT 59.4 SECONDS (25.2-36.5)
[2021-08-24 07:53] LABS: HEMATOCRIT 36.6 % (35.4-49); HEMOGLOBIN 12.3 GM/dL (11.7-16.9); MCH 30.5 pg (25.7-33.7); MCHC 33.5 g/dl (32.0-35.9); MEAN CELL VOLUME 91.1 fl (80-96); MEAN PLT VOLUME 7.4 fl (7.5-11.1); PLATELET COUNT 319 10^3/uL (134-434); RBC 4.02 M/mm3 (4.00-5.60); WHITE BLOOD COUNT 8.5 K/mm3 (4.0-10.0)
[2021-08-24] MEDS: ACETAMINOPHEN 325 MG TABLET (FP) PO PRN (08:02)
[2021-08-24 08:03] LABS: CALCIUM 7.8 mg/dL (8.5-10.1)
[2021-08-24] MEDS: TAMSULOSIN HCL 0.4 MG CAP PO SCH (08:03)
[2021-08-24 08:04] LABS: BLOOD UREA NITROGEN 13.6 mg/dL (7-18)
[2021-08-24] MEDS: DONEPEZIL HCL 10 MG TABLET (FP) PO SCH (09:50)
[2021-08-24] MEDS: metoPROLOL SUCCINATE 25 MG TAB.SR.24H (FP) PO SCH (09:50)
[2021-08-24] MEDS: LISINOPRIL 5 MG TABLET PO SCH (09:50)
[2021-08-24] MEDS: ASPIRIN 81 MG CHEWABLE TABLETS PO SCH (09:50)
[2021-08-24 15:16] VITALS: BP 138/64; PULSE 80; TEMP 98.3
[2021-08-24] MEDS: WARFARIN NA 2 MG TABLET PO SCH (17:18)
[2021-08-24] MEDS ORDERED: INSULIN (NOVOLOG) ASPART 100 UNITS/ML 10ML VIAL ONE (17:21)
[2021-09-03 12:22] LABS: METHYLMALONIC ACID- 137
[2021-09-03 12:23] LABS: HOMOCYSTINE-PLASMA OR SERUM 10.1 umol/L
== END 2021-08-24 20:36 | disposition home or self-care (01) | DRG 64 ==
LOC: JER 13:30 → JERBED 15:53 → J4W 08-18 19:02
PROVIDERS: ADMIT Hospitalist; ATTEND Internal Medicine
DX: I63.9 Cerebral infarction, unspecified (principal); G93.41 Metabolic encephalopathy; N17.9 Acute kidney failure, unspecified; N39.0 Urinary tract infection, site not specified; R44.3 Hallucinations, unspecified; E11.9 Type 2 diabetes mellitus without complications; R79.1 Abnormal coagulation profile; H53.16 Psychophysical visual disturbances; N40.0 Benign prostatic hyperplasia without lower urinary tract symptoms; I10 Essential (primary) hypertension; I44.0 Atrioventricular block, first degree; E03.9 Hypothyroidism, unspecified; B95.2 Enterococcus as the cause of diseases classified elsewhere; R51.9 Headache, unspecified; F03.90 Unspecified dementia, unspecified severity, without behavioral disturbance, psychotic disturbance, mood disturbance, and anxiety; I25.119 Atherosclerotic heart disease of native coronary artery with unspecified angina pectoris; I50.9 Heart failure, unspecified; I11.0 Hypertensive heart disease with heart failure; R26.81 Unsteadiness on feet; H54.62 Unqualified visual loss, left eye, normal vision right eye; R00.1 Bradycardia, unspecified; R29.700 NIHSS score 0; Z95.2 Presence of prosthetic heart valve; Z95.1 Presence of aortocoronary bypass graft; Z79.01 Long term (current) use of anticoagulants
CPT/HCPCS: 36415; 70450-TC; 71045-TC-FY; 80048; 80053; 80061; 81003; 82136; 82550; 82607; 82746; 82962; 83036; 83735; 83918; 84100; 84425; 84443; 84484; 85025; 85027; 85610; 85730; 87040; 87077; 87086; 87186; 93005; 93010; 93306-TC; 93880-TC; 97116-GP; 97162-GP; 99285-25; C9803; G0480; J1644; U0003; U0005

== ENCOUNTER 2022-01-10 12:46 | Inpatient (IN) | payer OTHER ==
[2022-01-10] MEDS ORDERED: DEXAMETHASONE SOD PHOSPHATE 10 MG/1 ML VIAL IVPUSH ONE (14:00)
[2022-01-10] MEDS ORDERED: REMDESIVIR 200 MG in SODIUM CHLORIDE 250 ML IVPB ONE (14:01)
[2022-01-10] MEDS ORDERED: DEXAMETHASONE SOD PHOSPHATE 10 MG/1 ML VIAL ONE (14:23)
[2022-01-10] MEDS ORDERED: SODIUM CHLORIDE 0.9% 500 ML INFUS.BAG IV ONE (14:36)
[2022-01-10] MEDS ORDERED: ACETAMINOPHEN 1000 MG/100 ML BAG IVPB ONE (14:46)
[2022-01-10] MEDS ORDERED: ACETAMINOPHEN INJECTION 100 ML IVPB ONE (15:05)
[2022-01-10 15:18] LABS: VENOUS BASE EXCESS -3.1 mmol/L (-2-2); VENOUS O2 SATURATION 22.8 % (70-80); VENOUS PCO2 48.1 mmHg (38-52); VENOUS PH 7.309 (7.310-7.410)
[2022-01-10 15:34] LABS: CALCIUM 8.7 mg/dL (8.5-10.1)
[2022-01-10 15:35] LABS: ALBUMIN 3.8 g/dl (3.4-5.0); BLOOD UREA NITROGEN 25.5 mg/dL (7-18)
[2022-01-10 15:38] LABS: CREATININE 1.3 mg/dL (0.55-1.3)
[2022-01-10 15:39] LABS: BILIRUBIN,TOTAL 0.5 mg/dL (0.2-1); TOT PROT 7.3 g/dl (6.4-8.2)
[2022-01-10 15:39] LABS: INR 2.05 (0.83-1.09); PROTHROMBIN TIME (PATIENT) 23.7 SEC (9.7-13.0)
[2022-01-10 15:41] LABS: BASO % 0.2 % (0-2.0); HEMATOCRIT 39.5 % (35.4-49); HEMOGLOBIN 13.2 GM/dL (11.7-16.9); LYMPH % 7.4 % (8-40); MCH 30.3 pg (25.7-33.7); MCHC 33.4 g/dl (32.0-35.9); MEAN CELL VOLUME 90.7 fl (80-96); MEAN PLT VOLUME 7.3 fl (7.5-11.1); MONO % 8.6 % (3.8-10.2); NEUT % 83.8 % (42.8-82.8); PLATELET COUNT 201 10^3/uL (134-434); RBC 4.35 M/mm3 (4.00-5.60); RDW 14.1 % (11.9-15.9); WHITE BLOOD COUNT 9.3 K/mm3 (4.0-10.0)
[2022-01-10 15:42] LABS: ACTIVATED PTT 47.2 SECONDS (25.2-36.5)
[2022-01-10] MEDS ORDERED: ALBUTEROL SO4 2.5/IPRATROPIUM 0.5 INH SOL 3 ML VIAL.NEB. NEB ONE ×3 (15:47→15:57)
[2022-01-10] MEDS ORDERED: AZITHROMYCIN IVPB 500 MG in DEXTROSE 5%-WATER - 250 ML IVPB ONE (16:33)
[2022-01-10] MEDS ORDERED: CEFTRIAXONE 1 GM/50 ML BAG ONE (17:11)
[2022-01-10] MEDS ORDERED: AZITHROMYCIN IVPB 500 MG/250 ML BAG IVPB ONE (17:11)
[2022-01-10] MEDS ORDERED: ACETAMINOPHEN 325 MG TABLET (FP) PO PRN (21:08)
[2022-01-10] MEDS ORDERED: ATORVASTATIN CA 40 MG TABLET (FP) PO SCH (22:00)
[2022-01-11] MEDS ORDERED: ATORVASTATIN CA 40 MG TABLET (FP) ONE (00:17)
[2022-01-11] MEDS: INSULIN SLIDING SCALE (NOVOLOG) 1 VIAL SQ SCH ×5 (00:22→22:12)
[2022-01-11 03:24] VITALS: BMI 24.5
[2022-01-11] MEDS ORDERED: GLIMEPIRIDE 4 MG TABLET PO SCH (07:00)
[2022-01-11] MEDS: TAMSULOSIN HCL 0.4 MG CAP PO SCH (08:57)
[2022-01-11] MEDS ORDERED: FAMOTIDINE 20 MG/50 ML IVPB 20 MG/50 ML MG IVPB ONE (09:00)
[2022-01-11] MEDS ORDERED: CEFTRIAXONE 1 GM in DEXTROSE 5%-WATER - 50 ML IVPB SCH (10:00)
[2022-01-11] MEDS ORDERED: AZITHROMYCIN 250 MG TABLET PO SCH (10:00)
[2022-01-11] MEDS ORDERED: AZITHROMYCIN IVPB 250 MG in DEXTROSE 5%-WATER - 250 ML IVPB SCH (10:00)
[2022-01-11 10:04] LABS: BASO % 0.1 % (0-2.0); HEMATOCRIT 36.5 % (35.4-49); HEMOGLOBIN 12.6 GM/dL (11.7-16.9); LYMPH % 9.4 % (8-40); MCH 30.6 pg (25.7-33.7); MCHC 34.4 g/dl (32.0-35.9); MEAN CELL VOLUME 89.1 fl (80-96); MEAN PLT VOLUME 7.3 fl (7.5-11.1); MONO % 5.1 % (3.8-10.2); NEUT % 85.4 % (42.8-82.8); PLATELET COUNT 206 10^3/uL (134-434); RDW 14.3 % (11.9-15.9); WHITE BLOOD COUNT 8.9 K/mm3 (4.0-10.0)
[2022-01-11 10:15] LABS: INR 2.7 (0.83-1.09); PROTHROMBIN TIME (PATIENT) 31.4 SEC (9.7-13.0)
[2022-01-11] MEDS ORDERED: cefTRIAXone SODIUM 1 GM VIAL ONE (10:15)
[2022-01-11] MEDS ORDERED: DEXTROSE 5%-WATER - 50 ML IVPB ONE (10:15)
[2022-01-11 10:18] LABS: ACTIVATED PTT 47.3 SECONDS (25.2-36.5)
[2022-01-11 10:42] LABS: ALBUMIN 3.2 g/dl (3.4-5.0); BLOOD UREA NITROGEN 26.8 mg/dL (7-18); CALCIUM 8.5 mg/dL (8.5-10.1); MAGNESIUM 2.1 mg/dL (1.8-2.4)
[2022-01-11 10:45] LABS: CREATININE 1.2 mg/dL (0.55-1.3); PHOSPHOROUS 2.6 mg/dL (2.5-4.9)
[2022-01-11 10:47] LABS: BILIRUBIN,TOTAL 0.4 mg/dL (0.2-1)
[2022-01-11 10:48] LABS: TOT PROT 6.5 g/dl (6.4-8.2)
[2022-01-11] MEDS: DEXAMETHASONE SOD PHOSPHATE 10 MG/1 ML VIAL IVPUSH SCH (10:58)
[2022-01-11] MEDS: DONEPEZIL HCL 10 MG TABLET (FP) PO SCH (10:59)
[2022-01-11] MEDS: metoPROLOL SUCCINATE 25 MG TAB.SR.24H (FP) PO SCH (10:59)
[2022-01-11] MEDS: LISINOPRIL 5 MG TABLET PO SCH (10:59)
[2022-01-11] MEDS: WARFARIN NA 2 MG TABLET PO SCH (17:23)
[2022-01-11] MEDS ORDERED: MELATONIN 5 MG TABLETS PO ONE (19:54)
[2022-01-11] MEDS: ATORVASTATIN CA 40 MG TABLET (FP) PO SCH (22:12)
[2022-01-12] MEDS: INSULIN SLIDING SCALE (NOVOLOG) 1 VIAL SQ SCH ×4 (06:30→21:25)
[2022-01-12] MEDS: TAMSULOSIN HCL 0.4 MG CAP PO SCH (08:01)
[2022-01-12] MEDS: LISINOPRIL 5 MG TABLET PO SCH (09:40)
[2022-01-12] MEDS: metoPROLOL SUCCINATE 25 MG TAB.SR.24H (FP) PO SCH (09:40)
[2022-01-12] MEDS: DONEPEZIL HCL 10 MG TABLET (FP) PO SCH (09:40)
[2022-01-12 09:41] LABS: BASO % 0.1 % (0-2.0); HEMATOCRIT 35.4 % (35.4-49); HEMOGLOBIN 12.1 GM/dL (11.7-16.9); LYMPH % 6.7 % (8-40); MCH 30.3 pg (25.7-33.7); MCHC 34.1 g/dl (32.0-35.9); MEAN PLT VOLUME 7.7 fl (7.5-11.1); MONO % 5.5 % (3.8-10.2); NEUT % 87.7 % (42.8-82.8); PLATELET COUNT 214 10^3/uL (134-434); RBC 3.98 M/mm3 (4.00-5.60); RDW 13.9 % (11.9-15.9); WHITE BLOOD COUNT 9.5 K/mm3 (4.0-10.0)
[2022-01-12 09:42] LABS: INR 2.98 (0.83-1.09); PROTHROMBIN TIME (PATIENT) 34.7 SEC (9.7-13.0)
[2022-01-12] MEDS ORDERED: DEXTROSE 5%-WATER - 50 ML IVPB ONE (10:17)
[2022-01-12] MEDS ORDERED: cefTRIAXone SODIUM 1 GM VIAL ONE (10:17)
[2022-01-12 10:43] LABS: ALBUMIN 3.1 g/dl (3.4-5.0); BILIRUBIN,TOTAL 0.7 mg/dL (0.2-1); BLOOD UREA NITROGEN 36.6 mg/dL (7-18); CALCIUM 8.5 mg/dL (8.5-10.1); CREATININE 1.1 mg/dL (0.55-1.3); MAGNESIUM 2.3 mg/dL (1.8-2.4); PHOSPHOROUS 2.8 mg/dL (2.5-4.9); TOT PROT 6.3 g/dl (6.4-8.2)
[2022-01-12] MEDS: DEXAMETHASONE SOD PHOSPHATE 10 MG/1 ML VIAL IVPUSH SCH (10:54)
[2022-01-12] MEDS: FAMOTIDINE 20 MG/50 ML IVPB 20 MG/50 ML MG IVPB SCH ×2 (10:55→21:14)
[2022-01-12] MEDS: CEFTRIAXONE 1 GM in DEXTROSE 5%-WATER - 50 ML IVPB SCH (11:00)
[2022-01-12] MEDS ORDERED: LORazepam 2 MG/ML SDV VIAL IVPUSH ONE (13:35)
[2022-01-12] MEDS ORDERED: REMDESIVIR 200 MG in SODIUM CHLORIDE 250 ML IVPB ONE (14:28)
[2022-01-12] MEDS: REMDESIVIR 100 MG in SODIUM CHLORIDE 250 ML IVPB SCH (16:54)
[2022-01-12] MEDS ORDERED: INSULIN (NOVOLOG) ASPART 100 UNITS/ML 10ML VIAL ONE ×2 (17:17→20:33)
[2022-01-12] MEDS: WARFARIN NA 2 MG TABLET PO SCH (17:29)
[2022-01-12] MEDS ORDERED: WARFARIN NA 3 MG TABLET PO SCH (18:58)
[2022-01-12] MEDS: ATORVASTATIN CA 40 MG TABLET (FP) PO SCH (21:12)
[2022-01-12] MEDS: QUEtiapine FUMARATE 25 MG TABLET PO SCH (21:13)
[2022-01-12] MEDS: INSULIN (LEVEMIR) 100 UNITS/ML UNITS SQ SCH (21:20)
[2022-01-13] MEDS: INSULIN SLIDING SCALE (NOVOLOG) 1 VIAL SQ SCH ×4 (06:30→21:16)
[2022-01-13] MEDS: INSULIN (LEVEMIR) 100 UNITS/ML UNITS SQ SCH ×2 (06:30→21:16)
[2022-01-13] MEDS ORDERED: INSULIN (NOVOLOG) ASPART 100 UNITS/ML 10ML VIAL ONE ×3 (06:37→20:34)
[2022-01-13] MEDS: TAMSULOSIN HCL 0.4 MG CAP PO SCH (09:09)
[2022-01-13 10:00] LABS: INR 3.08 (0.83-1.09); PROTHROMBIN TIME (PATIENT) 35.8 SEC (9.7-13.0)
[2022-01-13 10:04] LABS: BASO % 0.1 % (0-2.0); HEMATOCRIT 38.2 % (35.4-49); HEMOGLOBIN 12.9 GM/dL (11.7-16.9); LYMPH % 8.9 % (8-40); MCH 30.4 pg (25.7-33.7); MCHC 33.8 g/dl (32.0-35.9); MEAN CELL VOLUME 90.1 fl (80-96); MEAN PLT VOLUME 7.8 fl (7.5-11.1); MONO % 6.6 % (3.8-10.2); NEUT % 84.4 % (42.8-82.8); PLATELET COUNT 236 10^3/uL (134-434); RBC 4.24 M/mm3 (4.00-5.60); WHITE BLOOD COUNT 10.2 K/mm3 (4.0-10.0)
[2022-01-13 10:59] LABS: ALBUMIN 3.4 g/dl (3.4-5.0); BILIRUBIN,TOTAL 0.5 mg/dL (0.2-1); BLOOD UREA NITROGEN 31.3 mg/dL (7-18); CALCIUM 8.9 mg/dL (8.5-10.1); CREATININE 1.1 mg/dL (0.55-1.3); MAGNESIUM 2.3 mg/dL (1.8-2.4); PHOSPHOROUS 3.1 mg/dL (2.5-4.9); TOT PROT 6.8 g/dl (6.4-8.2)
[2022-01-13] MEDS ORDERED: cefTRIAXone SODIUM 1 GM VIAL ONE (11:09)
[2022-01-13] MEDS ORDERED: DEXTROSE 5%-WATER - 50 ML IVPB ONE (11:10)
[2022-01-13] MEDS: FAMOTIDINE 20 MG/50 ML IVPB 20 MG/50 ML MG IVPB SCH ×2 (11:42→21:16)
[2022-01-13] MEDS: CEFTRIAXONE 1 GM in DEXTROSE 5%-WATER - 50 ML IVPB SCH (11:42)
[2022-01-13] MEDS: LISINOPRIL 5 MG TABLET PO SCH (11:43)
[2022-01-13] MEDS: DEXAMETHASONE SOD PHOSPHATE 10 MG/1 ML VIAL IVPUSH SCH (11:43)
[2022-01-13] MEDS: REMDESIVIR 100 MG in SODIUM CHLORIDE 250 ML IVPB SCH (11:43)
[2022-01-13] MEDS: metoPROLOL SUCCINATE 25 MG TAB.SR.24H (FP) PO SCH (11:44)
[2022-01-13] MEDS: ATORVASTATIN CA 40 MG TABLET (FP) PO SCH (21:15)
[2022-01-13] MEDS: QUEtiapine FUMARATE 25 MG TABLET PO SCH (21:16)
[2022-01-14] MEDS ORDERED: INSULIN (NOVOLOG) ASPART 100 UNITS/ML 10ML VIAL ONE (05:09)
[2022-01-14] MEDS: INSULIN SLIDING SCALE (NOVOLOG) 1 VIAL SQ SCH ×4 (06:22→21:52)
[2022-01-14] MEDS: INSULIN (LEVEMIR) 100 UNITS/ML UNITS SQ SCH ×2 (06:23→21:54)
[2022-01-14 10:18] LABS: HEMATOCRIT 37.9 % (35.4-49); HEMOGLOBIN 12.6 GM/dL (11.7-16.9); INR 3.15 (0.83-1.09); LYMPH % 14.7 % (8-40); MCH 29.9 pg (25.7-33.7); MCHC 33.3 g/dl (32.0-35.9); MEAN CELL VOLUME 89.7 fl (80-96); MEAN PLT VOLUME 7.8 fl (7.5-11.1); MONO % 10.2 % (3.8-10.2); NEUT % 75.1 % (42.8-82.8); PLATELET COUNT 252 10^3/uL (134-434); PROTHROMBIN TIME (PATIENT) 36.7 SEC (9.7-13.0); RBC 4.22 M/mm3 (4.00-5.60); RDW 13.9 % (11.9-15.9); WHITE BLOOD COUNT 9.3 K/mm3 (4.0-10.0)
[2022-01-14 10:42] LABS: ALBUMIN 3.2 g/dl (3.4-5.0); BLOOD UREA NITROGEN 30.4 mg/dL (7-18); CALCIUM 8.9 mg/dL (8.5-10.1); MAGNESIUM 2.3 mg/dL (1.8-2.4)
[2022-01-14 10:45] LABS: CREATININE 1.1 mg/dL (0.55-1.3); PHOSPHOROUS 3.5 mg/dL (2.5-4.9)
[2022-01-14 10:47] LABS: BILIRUBIN,TOTAL 0.8 mg/dL (0.2-1); TOT PROT 6.5 g/dl (6.4-8.2)
[2022-01-14] MEDS ORDERED: cefTRIAXone SODIUM 1 GM VIAL ONE (11:09)
[2022-01-14] MEDS ORDERED: DEXTROSE 5%-WATER - 50 ML IVPB ONE (11:09)
[2022-01-14] MEDS: TAMSULOSIN HCL 0.4 MG CAP PO SCH (11:15)
[2022-01-14] MEDS: FAMOTIDINE 20 MG/50 ML IVPB 20 MG/50 ML MG IVPB SCH ×2 (11:15→21:48)
[2022-01-14] MEDS: LISINOPRIL 5 MG TABLET PO SCH (11:15)
[2022-01-14] MEDS: metoPROLOL SUCCINATE 25 MG TAB.SR.24H (FP) PO SCH (11:15)
[2022-01-14] MEDS: CEFTRIAXONE 1 GM in DEXTROSE 5%-WATER - 50 ML IVPB SCH (11:16)
[2022-01-14] MEDS: DEXAMETHASONE SOD PHOSPHATE 10 MG/1 ML VIAL IVPUSH SCH (11:54)
[2022-01-14] MEDS: REMDESIVIR 100 MG in SODIUM CHLORIDE 250 ML IVPB SCH (11:55)
[2022-01-14] MEDS ORDERED: LORazepam 2 MG/ML SDV VIAL IVPUSH ONE (15:05)
[2022-01-14] MEDS: WARFARIN NA 2 MG TABLET PO SCH (17:46)
[2022-01-14] MEDS: QUEtiapine FUMARATE 25 MG TABLET PO SCH (21:47)
[2022-01-14] MEDS: ATORVASTATIN CA 40 MG TABLET (FP) PO SCH (21:47)
[2022-01-15] MEDS: INSULIN SLIDING SCALE (NOVOLOG) 1 VIAL SQ SCH ×4 (06:04→22:10)
[2022-01-15] MEDS: INSULIN (LEVEMIR) 100 UNITS/ML UNITS SQ SCH ×2 (06:04→22:10)
[2022-01-15] MEDS ORDERED: cefTRIAXone SODIUM 1 GM VIAL ONE (09:23)
[2022-01-15] MEDS ORDERED: DEXTROSE 5%-WATER - 50 ML IVPB ONE (09:24)
[2022-01-15] MEDS: DEXAMETHASONE SOD PHOSPHATE 10 MG/1 ML VIAL IVPUSH SCH (09:25)
[2022-01-15] MEDS: CEFTRIAXONE 1 GM in DEXTROSE 5%-WATER - 50 ML IVPB SCH (09:25)
[2022-01-15] MEDS: metoPROLOL SUCCINATE 25 MG TAB.SR.24H (FP) PO SCH (09:25)
[2022-01-15] MEDS: LISINOPRIL 5 MG TABLET PO SCH (09:25)
[2022-01-15] MEDS: TAMSULOSIN HCL 0.4 MG CAP PO SCH (09:25)
[2022-01-15] MEDS: FAMOTIDINE 20 MG/50 ML IVPB 20 MG/50 ML MG IVPB SCH (09:51)
[2022-01-15 10:45] LABS: BASO % 0.2 % (0-2.0); EOS % 0.1 % (0-4.5); HEMATOCRIT 38.5 % (35.4-49); HEMOGLOBIN 13.2 GM/dL (11.7-16.9); LYMPH % 18.4 % (8-40); MCH 30.5 pg (25.7-33.7); MCHC 34.4 g/dl (32.0-35.9); MEAN CELL VOLUME 88.8 fl (80-96); MEAN PLT VOLUME 7.4 fl (7.5-11.1); MONO % 12.7 % (3.8-10.2); NEUT % 68.6 % (42.8-82.8); PLATELET COUNT 237 10^3/uL (134-434); RBC 4.34 M/mm3 (4.00-5.60); RDW 13.7 % (11.9-15.9); WHITE BLOOD COUNT 8.7 K/mm3 (4.0-10.0)
[2022-01-15 10:47] LABS: INR 2.87 (0.83-1.09); PROTHROMBIN TIME (PATIENT) 33.3 SEC (9.7-13.0)
[2022-01-15] MEDS: REMDESIVIR 100 MG in SODIUM CHLORIDE 250 ML IVPB SCH (10:49)
[2022-01-15 11:08] LABS: ALBUMIN 3.2 g/dl (3.4-5.0); BLOOD UREA NITROGEN 32.1 mg/dL (7-18); CALCIUM 8.6 mg/dL (8.5-10.1); MAGNESIUM 2.1 mg/dL (1.8-2.4)
[2022-01-15 11:11] LABS: PHOSPHOROUS 3.6 mg/dL (2.5-4.9)
[2022-01-15 11:12] LABS: CREATININE 1.1 mg/dL (0.55-1.3); TOT PROT 6.3 g/dl (6.4-8.2)
[2022-01-15 11:13] LABS: BILIRUBIN,TOTAL 0.7 mg/dL (0.2-1)
[2022-01-15] MEDS ORDERED: ZINC OXIDE 20% TOPICAL OINTMENT 30 GM TUBE TP ONE (13:00)
[2022-01-15] MEDS ORDERED: DOCUSATE SODIUM 100 MG CAPSULE (FP) PO PRN (13:00)
[2022-01-15] MEDS: SENNOSIDES 8.6MG TABLET (FP) PO SCH ×2 (13:59→22:08)
[2022-01-15] MEDS ORDERED: LORazepam 2 MG/ML SDV VIAL IVPUSH ONE (14:35)
[2022-01-15] MEDS: WARFARIN NA 2 MG TABLET PO SCH (17:12)
[2022-01-15] MEDS: ATORVASTATIN CA 40 MG TABLET (FP) PO SCH (22:07)
[2022-01-15] MEDS: FAMOTIDINE 20 MG TABLET PO SCH (22:07)
[2022-01-15] MEDS: QUEtiapine FUMARATE 25 MG TABLET PO SCH (22:07)
[2022-01-16] MEDS: INSULIN (LEVEMIR) 100 UNITS/ML UNITS SQ SCH ×2 (06:19→21:50)
[2022-01-16] MEDS: INSULIN SLIDING SCALE (NOVOLOG) 1 VIAL SQ SCH ×4 (06:19→21:50)
[2022-01-16] MEDS ORDERED: INSULIN (LEVEMIR) 100 UNITS/ML UNITS SQ ONE (06:48)
[2022-01-16] MEDS ORDERED: cefTRIAXone SODIUM 1 GM VIAL ONE (08:04)
[2022-01-16] MEDS ORDERED: DEXTROSE 5%-WATER - 50 ML IVPB ONE (08:04)
[2022-01-16] MEDS: TAMSULOSIN HCL 0.4 MG CAP PO SCH (08:12)
[2022-01-16] MEDS: LISINOPRIL 5 MG TABLET PO SCH (09:10)
[2022-01-16] MEDS: SENNOSIDES 8.6MG TABLET (FP) PO SCH ×2 (09:10→21:50)
[2022-01-16] MEDS: DEXAMETHASONE SOD PHOSPHATE 10 MG/1 ML VIAL IVPUSH SCH (09:10)
[2022-01-16] MEDS: metoPROLOL SUCCINATE 25 MG TAB.SR.24H (FP) PO SCH (09:10)
[2022-01-16] MEDS: FAMOTIDINE 20 MG TABLET PO SCH ×2 (09:10→21:50)
[2022-01-16] MEDS: CEFTRIAXONE 1 GM in DEXTROSE 5%-WATER - 50 ML IVPB SCH (09:11)
[2022-01-16 09:56] LABS: BASO % 0.1 % (0-2.0); EOS % 1.2 % (0-4.5); HEMATOCRIT 38.7 % (35.4-49); HEMOGLOBIN 13.2 GM/dL (11.7-16.9); MCH 30.4 pg (25.7-33.7); MCHC 34.1 g/dl (32.0-35.9); MEAN CELL VOLUME 89.1 fl (80-96); MEAN PLT VOLUME 7.8 fl (7.5-11.1); MONO % 12.9 % (3.8-10.2); NEUT % 64.8 % (42.8-82.8); PLATELET COUNT 246 10^3/uL (134-434); RBC 4.34 M/mm3 (4.00-5.60); RDW 13.6 % (11.9-15.9); WHITE BLOOD COUNT 9.5 K/mm3 (4.0-10.0)
[2022-01-16 10:02] LABS: ALBUMIN 3.2 g/dl (3.4-5.0); CALCIUM 8.8 mg/dL (8.5-10.1)
[2022-01-16 10:03] LABS: BLOOD UREA NITROGEN 31.1 mg/dL (7-18)
[2022-01-16 10:05] LABS: CREATININE 1.1 mg/dL (0.55-1.3)
[2022-01-16 10:06] LABS: PHOSPHOROUS 3.7 mg/dL (2.5-4.9)
[2022-01-16 10:07] LABS: BILIRUBIN,TOTAL 0.8 mg/dL (0.2-1)
[2022-01-16 10:09] LABS: INR 2.76 (0.83-1.09); PROTHROMBIN TIME (PATIENT) 32.1 SEC (9.7-13.0)
[2022-01-16] MEDS ORDERED: INSULIN (NOVOLOG) ASPART 100 UNITS/ML 10ML VIAL ONE (10:43)
[2022-01-16] MEDS: WARFARIN NA 2 MG TABLET PO SCH (17:08)
[2022-01-16] MEDS: QUEtiapine FUMARATE 25 MG TABLET PO SCH (21:50)
[2022-01-16] MEDS: ATORVASTATIN CA 40 MG TABLET (FP) PO SCH (21:50)
[2022-01-17] MEDS: INSULIN (LEVEMIR) 100 UNITS/ML UNITS SQ SCH ×2 (06:05→22:00)
[2022-01-17] MEDS: INSULIN SLIDING SCALE (NOVOLOG) 1 VIAL SQ SCH ×4 (06:06→22:05)
[2022-01-17] MEDS ORDERED: INSULIN (LEVEMIR) 100 UNITS/ML UNITS SQ ONE (06:35)
[2022-01-17] MEDS ORDERED: INSULIN (NOVOLOG) ASPART 100 UNITS/ML 10ML VIAL ONE (06:36)
[2022-01-17 09:10] LABS: BASO % 0.1 % (0-2.0); EOS % 2.4 % (0-4.5); HEMATOCRIT 39.6 % (35.4-49); HEMOGLOBIN 13.4 GM/dL (11.7-16.9); LYMPH % 19.2 % (8-40); MCH 30.1 pg (25.7-33.7); MCHC 33.9 g/dl (32.0-35.9); MEAN CELL VOLUME 88.8 fl (80-96); MEAN PLT VOLUME 7.9 fl (7.5-11.1); NEUT % 65.3 % (42.8-82.8); PLATELET COUNT 278 10^3/uL (134-434); RBC 4.46 M/mm3 (4.00-5.60); RDW 13.8 % (11.9-15.9); WHITE BLOOD COUNT 9.2 K/mm3 (4.0-10.0)
[2022-01-17 09:14] LABS: INR 2.56 (0.83-1.09); PROTHROMBIN TIME (PATIENT) 29.7 SEC (9.7-13.0)
[2022-01-17] MEDS: TAMSULOSIN HCL 0.4 MG CAP PO SCH (09:18)
[2022-01-17 09:29] LABS: CALCIUM 8.7 mg/dL (8.5-10.1)
[2022-01-17 09:30] LABS: ALBUMIN 3.3 g/dl (3.4-5.0); BLOOD UREA NITROGEN 32.8 mg/dL (7-18); MAGNESIUM 2.1 mg/dL (1.8-2.4)
[2022-01-17 09:33] LABS: PHOSPHOROUS 4.1 mg/dL (2.5-4.9)
[2022-01-17 09:35] LABS: BILIRUBIN,TOTAL 0.8 mg/dL (0.2-1); TOT PROT 6.7 g/dl (6.4-8.2)
[2022-01-17] MEDS ORDERED: cefTRIAXone SODIUM 1 GM VIAL ONE (10:14)
[2022-01-17] MEDS ORDERED: DEXTROSE 5%-WATER - 50 ML IVPB ONE (10:15)
[2022-01-17] MEDS: LISINOPRIL 5 MG TABLET PO SCH (10:16)
[2022-01-17] MEDS: SENNOSIDES 8.6MG TABLET (FP) PO SCH ×2 (10:16→22:01)
[2022-01-17] MEDS: metoPROLOL SUCCINATE 25 MG TAB.SR.24H (FP) PO SCH (10:16)
[2022-01-17] MEDS: FAMOTIDINE 20 MG TABLET PO SCH ×2 (10:16→22:02)
[2022-01-17] MEDS: DEXAMETHASONE SOD PHOSPHATE 10 MG/1 ML VIAL IVPUSH SCH (10:16)
[2022-01-17] MEDS: CEFTRIAXONE 1 GM in DEXTROSE 5%-WATER - 50 ML IVPB SCH (10:17)
[2022-01-17] MEDS ORDERED: SODIUM CHLORIDE 250 ML IV STA (12:30)
[2022-01-17] MEDS: WARFARIN NA 2 MG TABLET PO SCH (18:18)
[2022-01-17] MEDS: ATORVASTATIN CA 40 MG TABLET (FP) PO SCH (22:01)
[2022-01-17] MEDS: QUEtiapine FUMARATE 25 MG TABLET PO SCH (22:01)
[2022-01-18] MEDS: INSULIN (LEVEMIR) 100 UNITS/ML UNITS SQ SCH ×2 (06:13→22:39)
[2022-01-18] MEDS: INSULIN SLIDING SCALE (NOVOLOG) 1 VIAL SQ SCH ×4 (06:17→22:40)
[2022-01-18] MEDS: TAMSULOSIN HCL 0.4 MG CAP PO SCH (08:46)
[2022-01-18 10:02] LABS: BASO % 0.5 % (0-2.0); EOS % 2.1 % (0-4.5); HEMATOCRIT 39.3 % (35.4-49); HEMOGLOBIN 13.6 GM/dL (11.7-16.9); LYMPH % 20.9 % (8-40); MCH 30.6 pg (25.7-33.7); MCHC 34.5 g/dl (32.0-35.9); MEAN CELL VOLUME 88.7 fl (80-96); MEAN PLT VOLUME 7.6 fl (7.5-11.1); MONO % 9.9 % (3.8-10.2); NEUT % 66.6 % (42.8-82.8); PLATELET COUNT 251 10^3/uL (134-434); RBC 4.43 M/mm3 (4.00-5.60); RDW 13.8 % (11.9-15.9); WHITE BLOOD COUNT 9.2 K/mm3 (4.0-10.0)
[2022-01-18 10:21] LABS: CALCIUM 8.5 mg/dL (8.5-10.1)
[2022-01-18 10:22] LABS: ALBUMIN 3.2 g/dl (3.4-5.0); BLOOD UREA NITROGEN 34.3 mg/dL (7-18); MAGNESIUM 2.1 mg/dL (1.8-2.4)
[2022-01-18] MEDS ORDERED: cefTRIAXone SODIUM 1 GM VIAL ONE (10:23)
[2022-01-18] MEDS ORDERED: DEXTROSE 5%-WATER - 50 ML IVPB ONE (10:24)
[2022-01-18 10:25] LABS: CREATININE 1.1 mg/dL (0.55-1.3); INR 2.67 (0.83-1.09); PHOSPHOROUS 3.8 mg/dL (2.5-4.9)
[2022-01-18 10:26] LABS: BILIRUBIN,TOTAL 0.8 mg/dL (0.2-1); TOT PROT 6.3 g/dl (6.4-8.2)
[2022-01-18] MEDS: DEXAMETHASONE SOD PHOSPHATE 10 MG/1 ML VIAL IVPUSH SCH (10:35)
[2022-01-18] MEDS: SENNOSIDES 8.6MG TABLET (FP) PO SCH ×2 (10:35→22:38)
[2022-01-18] MEDS: FAMOTIDINE 20 MG TABLET PO SCH ×2 (10:35→22:37)
[2022-01-18] MEDS: LISINOPRIL 5 MG TABLET PO SCH (10:35)
[2022-01-18] MEDS: CEFTRIAXONE 1 GM in DEXTROSE 5%-WATER - 50 ML IVPB SCH (10:35)
[2022-01-18] MEDS: metoPROLOL SUCCINATE 25 MG TAB.SR.24H (FP) PO SCH (10:35)
[2022-01-18] MEDS: DEXAMETHASONE 4 MG TABLET (FP) PO SCH (11:19)
[2022-01-18] MEDS: WARFARIN NA 2 MG TABLET PO SCH (18:40)
[2022-01-18] MEDS: QUEtiapine FUMARATE 25 MG TABLET PO SCH (22:37)
[2022-01-18] MEDS: ATORVASTATIN CA 40 MG TABLET (FP) PO SCH (22:37)
[2022-01-19] MEDS: INSULIN SLIDING SCALE (NOVOLOG) 1 VIAL SQ SCH ×4 (06:34→22:05)
[2022-01-19] MEDS: INSULIN (LEVEMIR) 100 UNITS/ML UNITS SQ SCH ×2 (06:35→22:05)
[2022-01-19] MEDS: TAMSULOSIN HCL 0.4 MG CAP PO SCH (08:30)
[2022-01-19 09:09] LABS: BASO % 0.1 % (0-2.0); EOS % 1.5 % (0-4.5); HEMATOCRIT 38.4 % (35.4-49); HEMOGLOBIN 13.1 GM/dL (11.7-16.9); LYMPH % 19.9 % (8-40); MCH 30.4 pg (25.7-33.7); MCHC 34.3 g/dl (32.0-35.9); MEAN CELL VOLUME 88.8 fl (80-96); MEAN PLT VOLUME 7.7 fl (7.5-11.1); MONO % 8.2 % (3.8-10.2); NEUT % 70.3 % (42.8-82.8); PLATELET COUNT 262 10^3/uL (134-434); RBC 4.32 M/mm3 (4.00-5.60); RDW 13.5 % (11.9-15.9); WHITE BLOOD COUNT 9.5 K/mm3 (4.0-10.0)
[2022-01-19 09:14] LABS: INR 2.3 (0.83-1.09); PROTHROMBIN TIME (PATIENT) 26.7 SEC (9.7-13.0)
[2022-01-19] MEDS ORDERED: INSULIN (NOVOLOG) ASPART 100 UNITS/ML 10ML VIAL ONE (10:23)
[2022-01-19 10:31] LABS: ALBUMIN 3.2 g/dl (3.4-5.0); BLOOD UREA NITROGEN 30.9 mg/dL (7-18)
[2022-01-19] MEDS: FAMOTIDINE 20 MG TABLET PO SCH ×2 (10:31→22:05)
[2022-01-19] MEDS: LISINOPRIL 5 MG TABLET PO SCH (10:31)
[2022-01-19] MEDS: SENNOSIDES 8.6MG TABLET (FP) PO SCH ×2 (10:31→22:04)
[2022-01-19] MEDS: metoPROLOL SUCCINATE 25 MG TAB.SR.24H (FP) PO SCH (10:31)
[2022-01-19] MEDS: DEXAMETHASONE 4 MG TABLET (FP) PO SCH (10:31)
[2022-01-19 10:32] LABS: CALCIUM 8.7 mg/dL (8.5-10.1); MAGNESIUM 2.1 mg/dL (1.8-2.4)
[2022-01-19 10:34] LABS: CREATININE 1.1 mg/dL (0.55-1.3); PHOSPHOROUS 3.4 mg/dL (2.5-4.9)
[2022-01-19 10:36] LABS: TOT PROT 6.4 g/dl (6.4-8.2)
[2022-01-19] MEDS: WARFARIN NA 2 MG TABLET PO SCH (17:09)
[2022-01-19] MEDS: QUEtiapine FUMARATE 25 MG TABLET PO SCH (22:04)
[2022-01-19] MEDS: ATORVASTATIN CA 40 MG TABLET (FP) PO SCH (22:05)
[2022-01-20] MEDS: INSULIN SLIDING SCALE (NOVOLOG) 1 VIAL SQ SCH ×3 (06:09→17:17)
[2022-01-20] MEDS: INSULIN (LEVEMIR) 100 UNITS/ML UNITS SQ SCH (06:29)
[2022-01-20] MEDS: TAMSULOSIN HCL 0.4 MG CAP PO SCH (08:19)
[2022-01-20] MEDS: FAMOTIDINE 20 MG TABLET PO SCH (10:11)
[2022-01-20] MEDS: SENNOSIDES 8.6MG TABLET (FP) PO SCH (10:11)
[2022-01-20] MEDS: LISINOPRIL 5 MG TABLET PO SCH (10:11)
[2022-01-20] MEDS: metoPROLOL SUCCINATE 25 MG TAB.SR.24H (FP) PO SCH (10:11)
[2022-01-20 10:59] LABS: BASO % 0.2 % (0-2.0); EOS % 1.3 % (0-4.5); HEMATOCRIT 37.2 % (35.4-49); HEMOGLOBIN 12.9 GM/dL (11.7-16.9); LYMPH % 12.7 % (8-40); MCHC 34.8 g/dl (32.0-35.9); MEAN PLT VOLUME 7.8 fl (7.5-11.1); NEUT % 77.8 % (42.8-82.8); PLATELET COUNT 222 10^3/uL (134-434); RBC 4.18 M/mm3 (4.00-5.60); RDW 13.5 % (11.9-15.9); WHITE BLOOD COUNT 10.9 K/mm3 (4.0-10.0)
[2022-01-20 11:02] LABS: INR 1.91 (0.83-1.09); PROTHROMBIN TIME (PATIENT) 22.1 SEC (9.7-13.0)
[2022-01-20] MEDS ORDERED: INSULIN (NOVOLOG) ASPART 100 UNITS/ML 10ML VIAL ONE (11:16)
[2022-01-20 11:29] LABS: ALBUMIN 3.1 g/dl (3.4-5.0); BLOOD UREA NITROGEN 36.3 mg/dL (7-18); CALCIUM 8.7 mg/dL (8.5-10.1); MAGNESIUM 2.1 mg/dL (1.8-2.4)
[2022-01-20 11:32] LABS: CREATININE 1.2 mg/dL (0.55-1.3); PHOSPHOROUS 3.4 mg/dL (2.5-4.9)
[2022-01-20 11:33] LABS: BILIRUBIN,TOTAL 1.2 mg/dL (0.2-1); TOT PROT 6.2 g/dl (6.4-8.2)
[2022-01-20] MEDS ORDERED: WARFARIN NA 2 MG TABLET PO SCH (12:59)
[2022-01-20] MEDS ORDERED: ENOXAPARIN NA (PORCINE) 80 MG/0.8 ML DISP.SYRIN SQ ONE (13:42)
[2022-01-20 13:48] VITALS: BP 109/58; PULSE 65; TEMP 98.8
== END 2022-01-20 18:47 | disposition home or self-care (01) | DRG 177 ==
LOC: JER 12:46 → UNDOADMIN 15:43 → JERBED 15:43 → J6S 01-11 01:56
PROVIDERS: ADMIT Internal Medicine; ATTEND Internal Medicine
PROC: XW033E5 Introduction of Remdesivir Anti-infective into Peripheral Vein, Percutaneous Approach, New Technology Group 5 (ICD-10-PCS; principal; 2022-01-10)
PROC: 3E0333Z Introduction of Anti-inflammatory into Peripheral Vein, Percutaneous Approach (ICD-10-PCS; 2022-01-10)
DX: U07.1 COVID-19 (principal); J12.82 Pneumonia due to coronavirus disease 2019; J96.01 Acute respiratory failure with hypoxia; G93.41 Metabolic encephalopathy; E87.2 Acidosis; J98.11 Atelectasis; E87.1 Hypo-osmolality and hyponatremia; I24.8 Other forms of acute ischemic heart disease; I25.10 Atherosclerotic heart disease of native coronary artery without angina pectoris; E11.9 Type 2 diabetes mellitus without complications; N40.0 Benign prostatic hyperplasia without lower urinary tract symptoms; R41.82 Altered mental status, unspecified; R53.1 Weakness; F03.90 Unspecified dementia, unspecified severity, without behavioral disturbance, psychotic disturbance, mood disturbance, and anxiety; E11.65 Type 2 diabetes mellitus with hyperglycemia; Z95.2 Presence of prosthetic heart valve; Z95.1 Presence of aortocoronary bypass graft; Z86.73 Personal history of transient ischemic attack (TIA), and cerebral infarction without residual deficits
CPT/HCPCS: 0241U-QW; 36415; 70450-TC; 71045-TC-FY; 80048; 80053; 82553; 82728; 82803; 82962; 83605; 83615; 83735; 84100; 84443; 84484; 85025; 85379; 85610; 85730; 86140; 86738; 86850; 86900; 86901; 87040; 93005; 93010; 93306-TC; 94761; 97116-GP; 97162-GP; 99285-25; C9399; J1100

== ENCOUNTER 2022-05-16 13:49 | Observation (INO) | payer OTHER ==
[2022-05-16 14:57] VITALS: BMI 25.0
[2022-05-16 15:11] LABS: BASO % 0.5 % (0-2.0); HEMATOCRIT 41.8 % (35.4-49); HEMOGLOBIN 14.3 GM/dL (11.7-16.9); LYMPH % 11.9 % (8-40); MCH 31.3 pg (25.7-33.7); MCHC 34.3 g/dl (32.0-35.9); MEAN CELL VOLUME 91.4 fl (80-96); MEAN PLT VOLUME 7.1 fl (7.5-11.1); MONO % 7.3 % (3.8-10.2); NEUT % 79.3 % (42.8-82.8); PLATELET COUNT 249 10^3/uL (134-434); RBC 4.57 M/mm3 (4.00-5.60); RDW 13.8 % (11.9-15.9); WHITE BLOOD COUNT 9.5 K/mm3 (4.0-10.0)
[2022-05-16 15:16] LABS: INR 2.35 (0.83-1.09); PROTHROMBIN TIME (PATIENT) 27.3 SEC (9.7-13.0)
[2022-05-16 15:19] LABS: ACTIVATED PTT 48.7 SECONDS (25.2-36.5)
[2022-05-16 15:30] LABS: CALCIUM 9.1 mg/dL (8.5-10.1)
[2022-05-16 15:31] LABS: BLOOD UREA NITROGEN 25.9 mg/dL (7-18)
[2022-05-16 15:34] LABS: CREATININE 1.2 mg/dL (0.55-1.3)
[2022-05-16 15:36] LABS: BILIRUBIN,TOTAL 0.5 mg/dL (0.2-1); TOT PROT 7.5 g/dl (6.4-8.2)
[2022-05-16 16:48] LABS: BLOOD UREA NITROGEN 25.2 mg/dL (7-18); CALCIUM 8.7 mg/dL (8.5-10.1)
[2022-05-16 16:52] LABS: CREATININE 1.2 mg/dL (0.55-1.3)
[2022-05-16] MEDS ORDERED: MIDAZOLAM HCL 2 MG/2 ML SINGLE DOSE VIAL IVPUSH ONE (16:58)
[2022-05-16] MEDS ORDERED: MIDAZOLAM HCL 2 MG/2 ML SINGLE DOSE VIAL ONE (17:13)
[2022-05-16] MEDS ORDERED: DONEPEZIL HCL 23 MG PO SCH (22:00)
[2022-05-16] MEDS ORDERED: ATORVASTATIN CA 40 MG TABLET (FP) PO SCH (22:00)
[2022-05-16 23:42] LABS: PH,URINE 6.5 (5.0-8.0); URINE APPEARANCE CLEAR; URINE BILIRUBIN NEGATIVE (NEGATIVE); URINE COLOR YELLOW; URINE GLUCOSE (UA) 1+ (NEGATIVE); URINE KETONE NEGATIVE (NEGATIVE); URINE LEUK ESTERASE NEGATIVE (NEGATIVE); URINE NITRITE NEGATIVE (NEGATIVE); URINE PROTEIN NEGATIVE (NEGATIVE); URINE UROBILINOGEN 0.2 mg/dL (0.2-1.0)
[2022-05-16] MEDS ORDERED: LACTATED RINGERS SOLUTION 1,000 ML/1,000 ML INFUS.BAG IV SCH (23:45)
[2022-05-17] MEDS ORDERED: QUEtiapine FUMARATE 25 MG TABLET PO PRN (02:09)
[2022-05-17] MEDS ORDERED: HALOPERIDOL LACTATE 5 MG/ML IM ONE (02:18)
[2022-05-17] MEDS: INSULIN SLIDING SCALE (NOVOLOG) 1 VIAL SQ SCH ×3 (02:57→11:50)
[2022-05-17 07:21] VITALS: TEMP 98.4
[2022-05-17] MEDS ORDERED: LISINOPRIL 5 MG TABLET PO SCH (10:00)
[2022-05-17] MEDS ORDERED: INSULIN (LEVEMIR) 100 UNITS/ML UNITS SQ SCH (10:00)
[2022-05-17] MEDS ORDERED: TAMSULOSIN HCL 0.4 MG CAP PO SCH (10:00)
[2022-05-17 11:58] VITALS: PULSE 73
[2022-05-17 16:54] VITALS: BP 139/64; RESP 16
[2022-05-17] MEDS ORDERED: WARFARIN NA 2 MG TABLET PO SCH (18:00)
[2022-05-17] MEDS ORDERED: QUEtiapine FUMARATE 25 MG TABLET PO SCH (22:00)
== END 2022-05-17 17:11 | disposition home or self-care (01) ==
LOC: JER 13:49 → INTOOBSV 20:23 → JERBED 20:23 → UNDOADMOB 20:23 → JERBED 05-17 14:21
PROVIDERS: ADMIT Internal Medicine; ATTEND Internal Medicine
PROC: 3E023GC Introduction of Other Therapeutic Substance into Muscle, Percutaneous Approach (ICD-10-PCS; principal; 2022-05-17)
PROC: 3E0337Z Introduction of Electrolytic and Water Balance Substance into Peripheral Vein, Percutaneous Approach (ICD-10-PCS; 2022-05-17)
DX: Z86.16 Personal history of COVID-19 (principal); Z86.73 Personal history of transient ischemic attack (TIA), and cerebral infarction without residual deficits; Z95.1 Presence of aortocoronary bypass graft; I71.4 Abdominal aortic aneurysm, without rupture; Z79.01 Long term (current) use of anticoagulants; E11.9 Type 2 diabetes mellitus without complications; I10 Essential (primary) hypertension
CPT/HCPCS: 0241U-QW; 36415; 70450-TC; 71045-TC-FY; 72125-TC; 80048; 80053; 81003; 82550; 82962; 84439; 84443; 84481; 84484; 85025; 85610; 85730; 87086; 87186; 93005; 93010; 96360; 96372; 99285-25; G0378